=== PATIENT | female | born 1965 | race Caucasian/White ===

== ENCOUNTER → 2022-04-16 | Outpatient (CLI) | payer BC ==
--- NOTE | 2022-04-16 09:47 | Diagnostic Imaging Report ---
INDICATION: Nontoxic goiter. No prior studies are available for comparison. Right lobe of thyroid measures 4.2 x 1.2 x 1.4 cm and left lobe measures 3.3 x 1.1 x 1.3 cm. Isthmus is approximately 1 mm in thickness. Both lobes of thyroid show homogeneous echotexture. No discrete thyroid mass is detected. IMPRESSION: Unremarkable thyroid ultrasound. Dictated by: Dictated on workstation # [id number]
== END ==
LOC: RAD FS 08:28
PROVIDERS: ATTEND Nurse Practitioner Family
DX: E04.9 Nontoxic goiter, unspecified (principal)
CPT/HCPCS: 76536